=== PATIENT | female | born 1970 | race American Indian/Alaskan Native ===

== ENCOUNTER 2020-07-28 10:39 | Emergency (ER) | payer OTHER ==
[2020-07-28] MEDS ORDERED: MECLIZINE 25 MG TAB PO ONE (11:30)
--- NOTE | 2020-07-28 11:32 | Emergency Department Report ---
ED Dizziness HPI - General Chief Complaint: Dizziness Stated Complaint: SIDE EFFECTS FOR MEDS Time Seen by Provider: 07/28/20 11:29 Source: patient Mode of arrival: Ambulatory Limitations: No Limitations - History of Present Illness Initial Comments: Patient is a 49-year-old female presents emergency room stating that she believes she is having side effects from a new medication. She states that she was started on bupropion a week ago for depression. He states that she has never been on a medication for depression. She denies any SI or HI. She states for the last 3 days she has had dizziness which she describes as a room spinning sensation. She states that it is exacerbated by certain head movements. She has associated nausea, vomiting, diarrhea. She denies any vision changes, numbness, unilateral weakness, chest pain, shortness of breath, speech disturbance, gait disturbance. No other past medical history. No medication allergies. She has not followed back up with her primary care doctor regarding her new medication. - Related Data Previous Rx's Medication Instructions Recorded Last Taken Type Meclizine [Antivert] 25 mg PO Q8HR PRN #30 tablet 07/28/20 Unknown Rx Allergies Allergy/AdvReac Type Severity Reaction Status Date / Time No Known Allergies Allergy Verified 07/28/20 11:26 ED Review of Systems ROS: Stated complaint: SIDE EFFECTS FOR MEDS Other details as noted in HPI Comment: All other systems reviewed and negative ED Past Medical Hx - Past Medical History Hx Psychiatric Treatment: (depression) - Surgical History Past Surgical History?: No - Social History Smoking Status: Never Smoker Substance Use Type: None - Medications Home Medications: Home Medications Medication Instructions Recorded Confirmed Last Taken Type Meclizine [Antivert] 25 mg PO Q8HR PRN #30 tablet 07/28/20 Unknown Rx ED Physical Exam - General Limitations: No Limitations General appearance: alert, in no apparent distress - Head Head exam: Present: atraumatic, normocephalic - Eye Eye exam: Present: normal appearance, PERRL, EOMI. Absent: scleral icterus, conjunctival injection, nystagmus, periorbital swelling, periorbital tenderness Pupils: Present: normal accommodation - ENT ENT exam: Present: mucous membranes moist, TM's normal bilaterally, normal external ear exam, other (no sinus ttp bilaterally, normal nasal turbinates) - Neck Neck exam: Present: normal inspection, full ROM. Absent: tenderness, meningismus - Respiratory Respiratory exam: Present: normal lung sounds bilaterally. Absent: respiratory distress, wheezes, rales, rhonchi, stridor, chest wall tenderness, accessory muscle use, decreased breath sounds, prolonged expiratory - Cardiovascular Cardiovascular Exam: Present: regular rate, normal rhythm, normal heart sounds. Absent: systolic murmur, diastolic murmur, rubs, gallop - Neurological Exam Neurological exam: Present: alert, oriented X3, CN II-XII intact, normal gait. Absent: motor sensory deficit - Expanded Neurological Exam Expanded Patient oriented to: Present: person, place, time Speech: Present: fluid speech Cranial nerves: EOM's Intact: Normal, Gag Reflex: Normal, Facial Sensation: Normal Cerebellar function: Finger to Nose: Normal, Heel to Lee: Normal, Romberg: Normal Sensory exam: Upper Extremity Light Touch: Normal, Upper Extremity Pin Prick: Normal, Upper Extremity Temperature: Normal, UE 2 Point Discrimination: Normal, Lower Extremity Light Touch: Normal, Lower Extremity Pin Prick: Normal, Lower Extremity Temperature: Normal, LE 2 Point Discrimination: Normal Motor strength exam: RUE: 5, LUE: 5, RLE: 5, LLE: 5 Best Eye Response ([place]): (4) open spontaneously Best Motor Response ([place]): (6) obeys commands Best Verbal Response ([place]): (5) oriented [place] Total: 15 - Psychiatric Psychiatric exam: Present: normal affect, normal mood - Skin Skin exam: Present: warm, dry, intact ED Course Vital Signs 07/28/20 07/28/20 11:26 14:44 Temperature 98.5 F 89 F L Pulse Rate 73 Respiratory 24 18 Rate Blood Pressure 145/103 Blood Pressure 144/92 [Right] O2 Sat by Pulse 100 Oximetry ED Medical Decision Making - Lab Data Result diagrams: 07/28/20 11:33 07/28/20 11:33 Lab Results 07/28/20 07/28/20 07/28/20 Range/Units 11:33 11:33 11:33 WBC 4.7 (4.5-11.0) K/mm3 RBC 4.81 (3.65-5.03) M/mm3 Hgb 14.4 H (10.1-14.3) gm/dl Hct 41.9 (30.3-42.9) % MCV 87 (79-97) fl MCH 30 (28-32) pg MCHC 34 (30-34) % RDW 15.6 H (13.2-15.2) % Plt Count 199 (140-440) K/mm3 Lymph % (Auto) 28.7 (13.4-35.0) % [place] % (Auto) 7.6 H (0.0-7.3) % Eos % (Auto) 0.5 (0.0-4.3) % Baso % (Auto) 0.6 (0.0-1.8) % Lymph # (Auto) 1.4 (1.2-5.4) K/mm3 [place] # (Auto) 0.4 (0.0-0.8) K/mm3 Eos # (Auto) 0.0 (0.0-0.4) K/mm3 Baso # (Auto) 0.0 (0.0-0.1) K/mm3 Seg Neutrophils % 62.6 (40.0-70.0) % Seg Neutrophils # 2.9 (1.8-7.7) K/mm3 Sodium 140 (137-145) mmol/L Potassium 3.9 (3.6-5.0) mmol/L Chloride 101.6 (98-107) mmol/L Carbon Dioxide 22 (22-30) mmol/L Anion Gap 20 mmol/L BUN 10 (7-17) mg/dL Creatinine 1.0 (0.6-1.2) mg/dL Estimated GFR 59 ml/min BUN/Creatinine Ratio 10 % Glucose 110 H (65-100) mg/dL Calcium 9.7 (8.4-10.2) mg/dL Magnesium 2.00 (1.7-2.3) mg/dL Total Bilirubin 0.40 (0.1-1.2) mg/dL AST 24 (5-40) units/L ALT 20 (7-56) units/L Alkaline Phosphatase 100 (35-129) units/L Total Creatine Kinase 359 H (30-135) units/L Total Protein 8.5 H (6.3-8.2) g/dL Albumin 4.8 (3.9-5) g/dL Albumin/Globulin Ratio 1.3 % TSH 1.870 (0.270-4.200) mlU/mL Urine Color (Yellow) Urine Turbidity (Clear) Urine pH (5.0-7.0) Ur Specific [place] (1.003-1.030) Urine Protein (Negative) mg/dL Urine Glucose (UA) (Negative) mg/dL Urine Ketones (Negative) mg/dL Urine Blood (Negative) Urine Nitrite (Negative) Urine Bilirubin (Negative) Urine Urobilinogen (<2.0) mg/dL Ur Leukocyte Esterase (Negative) Urine WBC (Auto) (0.0-6.0) /HPF Urine RBC (Auto) (0.0-6.0) /HPF U Epithel Cells (Auto) (0-13.0) /HPF Urine Mucus /HPF 07/28/20 Range/Units 12:01 WBC (4.5-11.0) K/mm3 RBC (3.65-5.03) M/mm3 Hgb (10.1-14.3) gm/dl Hct (30.3-42.9) % MCV (79-97) fl MCH (28-32) pg MCHC (30-34) % RDW (13.2-15.2) % Plt Count (140-440) K/mm3 Lymph % (Auto) (13.4-35.0) % [place] % (Auto) (0.0-7.3) % Eos % (Auto) (0.0-4.3) % Baso % (Auto) (0.0-1.8) % Lymph # (Auto) (1.2-5.4) K/mm3 [place] # (Auto) (0.0-0.8) K/mm3 Eos # (Auto) (0.0-0.4) K/mm3 Baso # (Auto) (0.0-0.1) K/mm3 Seg Neutrophils % (40.0-70.0) % Seg Neutrophils # (1.8-7.7) K/mm3 Sodium (137-145) mmol/L Potassium (3.6-5.0) mmol/L Chloride (98-107) mmol/L Carbon Dioxide (22-30) mmol/L Anion Gap mmol/L BUN (7-17) mg/dL Creatinine (0.6-1.2) mg/dL Estimated GFR ml/min BUN/Creatinine Ratio % Glucose (65-100) mg/dL Calcium (8.4-10.2) mg/dL Magnesium (1.7-2.3) mg/dL Total Bilirubin (0.1-1.2) mg/dL AST (5-40) units/L ALT (7-56) units/L Alkaline Phosphatase (35-129) units/L Total Creatine Kinase (30-135) units/L Total Protein (6.3-8.2) g/dL Albumin (3.9-5) g/dL Albumin/Globulin Ratio % TSH (0.270-4.200) mlU/mL Urine Color Yellow (Yellow) Urine Turbidity Hazy (Clear) Urine pH 5.0 (5.0-7.0) Ur Specific [place] 1.029 (1.003-1.030) Urine Protein 30 mg/dl (Negative) mg/dL Urine Glucose (UA) Neg (Negative) mg/dL Urine Ketones Neg (Negative) mg/dL Urine Blood Neg (Negative) Urine Nitrite Neg (Negative) Urine Bilirubin Neg (Negative) Urine Urobilinogen < 2.0 (<2.0) mg/dL Ur Leukocyte Esterase Neg (Negative) Urine WBC (Auto) 4.0 (0.0-6.0) /HPF Urine RBC (Auto) 2.0 (0.0-6.0) /HPF U Epithel Cells (Auto) 3.0 (0-13.0) /HPF Urine Mucus 3+ /HPF Vital Signs 07/28/20 07/28/20 11:26 14:44 Temperature 98.5 F 89 F L Pulse Rate 73 Respiratory 24 18 Rate Blood Pressure 145/103 Blood Pressure 144/92 [Right] O2 Sat by Pulse 100 Oximetry - EKG Data EKG shows normal: sinus rhythm, intervals, QRS complexes, ST-T waves Rate: normal - Medical Decision Making Patient is a 49-year-old female presents emergency room stating that she believes she is having side effects from a new medication. She states that she was started on bupropion a week ago for depression. He states that she has never been on a medication for depression. She denies any SI or HI. She states for the last 3 days she has had dizziness which she describes as a room spinning sensation. She states that it is exacerbated by certain head movements. She has associated nausea, vomiting, diarrhea. She denies any vision changes, numbness, unilateral weakness, chest pain, shortness of breath, speech disturbance, gait disturbance. No other past medical history. No medication allergies. She has not followed back up with her primary care doctor regarding her new medication. Vitals are stable. Repeat temperature entered incorrectly by nurse, it is 98 F. EKG is stable. Labs are stable. UA is normal. Patient has no focal neuro deficits on exam. Symptoms appear likely consistent with vertigo versus dizziness from medication reaction. Patient given meclizine while in the emergency department and symptoms improved. Advised patient Please take medication as prescribed. Increase your fluid intake over the next several days. Please stop medication and speak with your primary care doctor regarding your medication reaction. Return to emergency room for any new or worsening symptoms. Critical care attestation.: If time is entered above; I have spent that time in minutes in the direct care of this critically ill patient, excluding procedure time. ED Disposition Clinical Impression: Dizziness, Medication side effect Disposition: DC-01 TO HOME OR SELFCARE Is pt being admited?: No Does the pt Need Aspirin: No Condition: Stable Instructions: Vertigo, [id number], Dizziness, [id number] Additional Instructions: Please take medication as prescribed. Increase your fluid intake over the next several days. Please stop medication and speak with your primary care doctor regarding your medication reaction. Return to emergency room for any new or worsening symptoms. Prescriptions: Meclizine [Antivert] 25 mg PO Q8HR PRN #30 tablet PRN Reason: Vertigo Referrals: PRIMARY CARE, [Primary Care Provider] - 2-3 Days Time of Disposition: 14:14 Print Language: URDU
[2020-07-28 11:50] LABS: Basophils % (Auto) 0.6 % (0.0-1.8); Eosinophils % (Auto) 0.5 % (0.0-4.3); Hematocrit 41.9 % (30.3-42.9); Hemoglobin 14.4 gm/dl (10.1-14.3); Lymphocytes # (Auto) 1.4 K/mm3 (1.2-5.4); Lymphocytes % (Auto) 28.7 % (13.4-35.0); Mean Corpuscular HGB Conc 34 % (30-34); Mean Corpuscular Volume 87 fl (79-97); Monocytes # (Auto) 0.4 K/mm3 (0.0-0.8); Monocytes % (Auto) 7.6 % (0.0-7.3); Platelet Count 199 K/mm3 (140-440); Red Blood Count 4.81 M/mm3 (3.65-5.03); Red Cell Distribution Width 15.6 % (13.2-15.2)
[2020-07-28 12:01] LABS: Calcium 9.7 mg/dL (8.4-10.2)
[2020-07-28 12:19] LABS: Bilirubin,Urine NEG (Negative); Blood,Urine NEG (Negative); Color,Urine Yellow (Yellow); Mucus,Urine 3+ /HPF; Urobilinogen,Urine < 2.0 mg/dL (<2.0)
[2020-07-28 13:57] LABS: Albumin 4.8 g/dL (3.9-5)
[2020-07-28 14:45] VITALS: BP 144/92
--- NOTE | 2020-07-30 09:32 | Electrocardiograph Report ---
[facility] Test Date: 2020-07-28 Test Time: 11:30:28 Pat Name: GOLDY LAMAS Department: Room: Gender: F Human Resources Executive Assistant: BRADLEY : 1970 Requested By: ANTONIO PARKER Order Number: [id number] Reading MD: Albert Randhawa Measurements Intervals [place] Rate: 66 P: 34 NC: 67 QRS: 1 QRSD: 73 T: -12 QT: 368 QTc: 385 Interpretive Statements Sinus rhythm Consider anteroseptal infarct No previous ECG available for comparison Electronically Signed On 07-30-2020 9:32:00 EDT by Albert Randhawa
== END 2020-07-28 14:45 | disposition home or self-care (01) ==
LOC: ED 10:39
DX: R42 Dizziness and giddiness (principal); F32.9 Major depressive disorder, single episode, unspecified; T50.905A Adverse effect of unspecified drugs, medicaments and biological substances, initial encounter; Y92.89 Other specified places as the place of occurrence of the external cause
CPT/HCPCS: 36415; 80053; 81001; 82550; 83735; 84443; 85025; 93005; 99283